=== PATIENT | male | born 1995 | race Caucasian/White ===

== ENCOUNTER 2016-02-16 12:47 | Emergency (ER) | payer OTHER ==
--- NOTE | 2016-02-16 13:53 | EDDOCDS ---
Nurse's Notes [facility] Name: Vidal Tellez Age: 20 yrs Sex: Male : 1995 Arrival Date: 02/16/2016 Time: 12:47 Bed TR8 Private MD: Other - Complete Info On Cds Diagnosis: Acute upper respiratory infection, unspecified;Other acute nonsuppurative otitis media Presentation: 02/15 13:03 Presenting complaint: Patient states: that he parents told him that he had the flu and ms18 had to be seen today. Pt reports NVD, body aches since Tuesday morning. Adult Sepsis Screening: The patient does not have new or worsening altered mentation. Patient's respiratory rate is less than 22. Systolic blood pressure is greater than 100. Patient has a qSOFA score of 0- Negative Sepsis Screen. Suicide/Homicide risk assessment- the patient denies having any suicidal and/or homicidal ideations and does not present with any other emotional, behavioral or mental health complaints. Status: The patient is an active duty application services manager. Transition of care: patient was not received from another setting of care. 13:03 Method Of Arrival: Walkin/Carried/Asstd ms18 13:03 Acuity: RON Level 3 ms18 Triage Assessment: 13:05 General: Appears in no apparent distress, comfortable, Behavior is appropriate for age, ms18 cooperative. Pain: Location: abdomen Pain currently is 9 out of 10 on a pain scale. Pt Declines HIV testing. Neurological: Level of Consciousness is awake, alert, obeys commands, Oriented to person, place, time. Respiratory: Airway is patent Respiratory effort is even, unlabored. GI: Abdomen is distended, Reports diarrhea, nausea, vomiting. Derm: Skin is pink, warm & dry. Historical: - Allergies: no known allergies; - Home Meds: 1. none - PMHx: none; - PSHx: Appendectomy; - Social history: Smoking status: Patient states was never smoker of tobacco. No barriers to communication noted, The patient speaks fluent Romanian. - Family history: Not pertinent. - : The pt / caregiver states he / she is not on anticoagulants. Home medication list is obtained from the patient. - Exposure Risk Screening:: None identified. Screenin:51 Screening information is obtained from the patient. Fall risk: No risks identified. ms18 Assistance ADL's: requires no assistance with activities of daily living. Abuse/DV Screen: The patient / caregiver reports he/she is: not in a situation that causes fear, pain or injury. Nutritional screening: No deficits noted. Advance Directives: There is no living will. home support is adequate. Assessment: 13:51 General: Appears in no apparent distress, comfortable, well nourished, well groomed, ms18 Behavior is appropriate for age, cooperative. Pain: Location: abdomen Pain currently is 9 out of 10 on a pain scale. Neurological: No deficits noted. Respiratory: No deficits noted. Derm: Skin is pink, warm & dry. Vital Signs: 12:49 BP 143 / 78; Pulse 101; Resp 18 S; Temp 97.7(O); Pulse Ox 98% on R/A; Weight 88.45 kg gr2 (M); Height 6 ft. 1 in. (185.42 cm) (R); Pain 4/10; 13:49 BP 136 / 81; Pulse 95; Resp 18; Temp 98(TE); Pulse Ox 98% ; Pain 9/10; ms18 12:49 Body Mass Index 25.73 (88.45 kg, 185.42 cm) gr2 Vitals: 12:49 Log In Time: February 16, 2016 at 12:49. gr2 ED Course: 12:48 Patient visited by Susan De La O. gr2 12:48 Patient moved to Waiting gr2 12:49 Other - Complete Info On Cds is Private Physician. gr2 12:51 Patient visited by Susan De La O. gr2 12:51 Patient moved to Pre RCE gr2 13:05 Triage Initiated ms18 13:29 Patient moved to Triage 2 ms18 13:34 [facility] dk1 13:34 Katarina Green MD is Attending Physician. dk1 13:37 Patient visited by Brandon Turner PA-C. dk1 13:37 [place] Payment Agreement was scanned into [employer] and attached to record. jp5 13:45 Roland Noland [facility] is Referral Physician. dk1 13:49 Patient visited by Rosalva Gonzalez RN. ms18 13:51 Patient visited by Rosalva Gonzalez RN. ms18 13:51 Patient moved to TR8 dem1 13:51 The patient / caregiver is instructed regarding the plan of care and ED course. Patient ms18 has correct armband on for positive identification. Property sent home with patient. :Personal belongings accompany Pt. 13:51 No IV's were initiated during this patient's visit. No procedures done that require ms18 assistance. Order Results: There are currently no results for this order. Outcome: 13:45 Discharge ordered by Provider. dk1 13:51 Discharge Assessment: Patient awake, alert and oriented x 3. No cognitive and/or ms18 functional deficits noted. Patient verbalized understanding of disposition instructions. patient administered narcotics - no. The following High Risk Discharge criteria are identified: None. Discharged to home ambulatory. Condition: good Condition: stable Condition: improved. Discharge instructions given to patient, Instructed on discharge instructions, follow up and referral plans. medication usage, Demonstrated understanding of instructions, medications, Pt was receptive of discharge instructions/ teaching. Prescriptions given X 2. No special radiology studies were completed. 13:53 Patient left the ED. ms18 Signatures: Brandon Turner PA-C PA-C dk1 Laila Solis1 Susan De La O gr2 Rosalva Gonzalez,RN RN ms18 Bev Barron jp5 Corrections: (The following items were deleted from the chart) 13:07 13:03 Acuity: RON Level 4 ms18 ms18 SUGEY
--- NOTE | 2016-02-16 13:53 | EDDOCDS ---
Physician Documentation [facility] Name: Vidal Tellez Age: 20 yrs Sex: Male : 1995 Arrival Date: 02/16/2016 Time: 12:47 Bed TR8 Private MD: Other - Complete Info On Cds Disposition: 02/16/16 13:45 Discharged to Home/Self Care. Impression: Acute upper respiratory infection, unspecified, Other acute nonsuppurative otitis media. - Condition is Stable. - Discharge Instructions: Otitis Media, Adult, Upper Respiratory Infection, Adult. - Prescriptions for Amoxicillin 500 mg Oral Capsule - take 1 capsule by ORAL route every 8 hours for 10 days; 30 tablet. ZOFRAN ODT 4 mg - dissolve 1 tablet by ORAL route 4 times per day As needed do not chew, do not swallow whole; 10 tablet. - Medication Reconciliation, Local Pharmacy Hours form. - Follow up: Roland Noland [facility]; When: 2 - 3 days; Reason: Continuance of care. Follow up: Emergency Department; When: As needed. - Problem is new. - Symptoms are unchanged. Historical: - Allergies: no known allergies; - Home Meds: 1. none - PMHx: none; - PSHx: Appendectomy; - Social history: Smoking status: Patient states was never smoker of tobacco. No barriers to communication noted, The patient speaks fluent [place]. - Family history: Not pertinent. - : The pt / caregiver states he / she is not on anticoagulants. Home medication list is obtained from the patient. - Exposure Risk Screening:: None identified. Vital Signs: 02/15 12:49 BP 143 / 78; Pulse 101; Resp 18 S; Temp 97.7(O); Pulse Ox 98% on R/A; Weight 88.45 kg / gr2 195 lbs (M); Height 6 ft. 1 in. (185.42 cm) (R); Pain 4/10; 13:49 BP 136 / 81; Pulse 95; Resp 18; Temp 98(TE); Pulse Ox 98% ; Pain 9/10; ms18 12:49 Body Mass Index 25.73 (88.45 kg, 185.42 cm) gr2 MDM: 13:37 [facility] Payment Agreement was scanned into [employer] and attached to record. 5 13:37 Financial registration complete. jp5 Signatures: Brandon Turner PA-C PA-C dk1 Rosalva Gonzalez,RN RN ms18 Bev Barron jp5 The chart was reviewed and I authenticate all verbal orders and agree with the evaluation and treatment provided.Attachments: 13:37 [facility] Payment Agreement jp5 MTDD
--- NOTE | 2016-02-18 14:53 | EDDOCDS ---
Nurse's Notes [facility] Name: Vidal Tellez Age: 20 yrs Sex: Male : 1995 Arrival Date: 02/16/2016 Time: 12:47 Bed TR8 Private MD: Other - Complete Info On Cds Diagnosis: Acute upper respiratory infection, unspecified;Other acute nonsuppurative otitis media Presentation: 02/15 13:03 Presenting complaint: Patient states: that he parents told him that he had the flu and ms18 had to be seen today. Pt reports NVD, body aches since Tuesday morning. Adult Sepsis Screening: The patient does not have new or worsening altered mentation. Patient's respiratory rate is less than 22. Systolic blood pressure is greater than 100. Patient has a qSOFA score of 0- Negative Sepsis Screen. Suicide/Homicide risk assessment- the patient denies having any suicidal and/or homicidal ideations and does not present with any other emotional, behavioral or mental health complaints. Status: The patient is an active duty commercial hvac service technician. Transition of care: patient was not received from another setting of care. 13:03 Method Of Arrival: Walkin/Carried/Asstd ms18 13:03 Acuity: RON Level 3 ms18 Triage Assessment: 13:05 General: Appears in no apparent distress, comfortable, Behavior is appropriate for age, ms18 cooperative. Pain: Location: abdomen Pain currently is 9 out of 10 on a pain scale. Pt Declines HIV testing. Neurological: Level of Consciousness is awake, alert, obeys commands, Oriented to person, place, time. Respiratory: Airway is patent Respiratory effort is even, unlabored. GI: Abdomen is distended, Reports diarrhea, nausea, vomiting. Derm: Skin is pink, warm & dry. Historical: - Allergies: no known allergies; - Home Meds: 1. none - PMHx: none; - PSHx: Appendectomy; - Social history: Smoking status: Patient states was never smoker of tobacco. No barriers to communication noted, The patient speaks fluent Mohawk. - Family history: Not pertinent. - : The pt / caregiver states he / she is not on anticoagulants. Home medication list is obtained from the patient. - Exposure Risk Screening:: None identified. Screenin:51 Screening information is obtained from the patient. Fall risk: No risks identified. ms18 Assistance ADL's: requires no assistance with activities of daily living. Abuse/DV Screen: The patient / caregiver reports he/she is: not in a situation that causes fear, pain or injury. Nutritional screening: No deficits noted. Advance Directives: There is no living will. home support is adequate. Assessment: 13:51 General: Appears in no apparent distress, comfortable, well nourished, well groomed, ms18 Behavior is appropriate for age, cooperative. Pain: Location: abdomen Pain currently is 9 out of 10 on a pain scale. Neurological: No deficits noted. Respiratory: No deficits noted. Derm: Skin is pink, warm & dry. Vital Signs: 12:49 BP 143 / 78; Pulse 101; Resp 18 S; Temp 97.7(O); Pulse Ox 98% on R/A; Weight 88.45 kg gr2 (M); Height 6 ft. 1 in. (185.42 cm) (R); Pain 4/10; 13:49 BP 136 / 81; Pulse 95; Resp 18; Temp 98(TE); Pulse Ox 98% ; Pain 9/10; ms18 12:49 Body Mass Index 25.73 (88.45 kg, 185.42 cm) gr2 Vitals: 12:49 Log In Time: February 16, 2016 at 12:49. gr2 ED Course: 12:48 Patient visited by Susan De La O. gr2 12:48 Patient moved to Waiting gr2 12:49 Other - Complete Info On Cds is Private Physician. gr2 12:51 Patient visited by Susan De La O. gr2 12:51 Patient moved to Pre RCE gr2 13:05 Triage Initiated ms18 13:29 Patient moved to Triage 2 ms18 13:34 [facility] dk1 13:34 Katarina Green MD is Attending Physician. dk1 13:37 Patient visited by Brandon Turner PA-C. dk1 13:37 [place] Payment Agreement was scanned into [employer] and attached to record. jp5 13:45 Roland Noland [facility] is Referral Physician. dk1 13:49 Patient visited by Rosalva Gonzalez RN. ms18 13:51 Patient visited by Rosalva Gonzalez RN. ms18 13:51 Patient moved to TR8 dem1 13:51 The patient / caregiver is instructed regarding the plan of care and ED course. Patient ms18 has correct armband on for positive identification. Property sent home with patient. :Personal belongings accompany Pt. 13:51 No IV's were initiated during this patient's visit. No procedures done that require ms18 assistance. 14:26 T-Sheet-- Draft Copy was scanned into [employer] and attached to record. gb Order Results: There are currently no results for this order. Outcome: 13:45 Discharge ordered by Provider. dk1 13:51 Discharge Assessment: Patient awake, alert and oriented x 3. No cognitive and/or ms18 functional deficits noted. Patient verbalized understanding of disposition instructions. patient administered narcotics - no. The following High Risk Discharge criteria are identified: None. Discharged to home ambulatory. Condition: good Condition: stable Condition: improved. Discharge instructions given to patient, Instructed on discharge instructions, follow up and referral plans. medication usage, Demonstrated understanding of instructions, medications, Pt was receptive of discharge instructions/ teaching. Prescriptions given X 2. No special radiology studies were completed. 13:53 Patient left the ED. ms18 Signatures: Staci Mckeon, Reg Reg gb Brandon Turner, PA-Shirin PA-C dk1 Laila Solis1 Susan De La O gr2 Rosalva Gonzalez,RN RN ms18 Bev Barron jp5 Corrections: (The following items were deleted from the chart) 13:07 13:03 Acuity: RON Level 4 ms18 ms18 Chart Complete MTDD
--- NOTE | 2016-02-18 14:53 | EDDOCDS ---
Physician Documentation [facility] Name: Vidal Tellez Age: 20 yrs Sex: Male : 1995 Arrival Date: 02/16/2016 Time: 12:47 Bed TR8 Private MD: Other - Complete Info On Cds Disposition: 02/16/16 13:45 Discharged to Home/Self Care. Impression: Acute upper respiratory infection, unspecified, Other acute nonsuppurative otitis media. - Condition is Stable. - Discharge Instructions: Otitis Media, Adult, Upper Respiratory Infection, Adult. - Prescriptions for Amoxicillin 500 mg Oral Capsule - take 1 capsule by ORAL route every 8 hours for 10 days; 30 tablet. ZOFRAN ODT 4 mg - dissolve 1 tablet by ORAL route 4 times per day As needed do not chew, do not swallow whole; 10 tablet. - Medication Reconciliation, Local Pharmacy Hours form. - Follow up: Roland Noland [facility]; When: 2 - 3 days; Reason: Continuance of care. Follow up: Emergency Department; When: As needed. - Problem is new. - Symptoms are unchanged. Historical: - Allergies: no known allergies; - Home Meds: 1. none - PMHx: none; - PSHx: Appendectomy; - Social history: Smoking status: Patient states was never smoker of tobacco. No barriers to communication noted, The patient speaks fluent Tajik. - Family history: Not pertinent. - : The pt / caregiver states he / she is not on anticoagulants. Home medication list is obtained from the patient. - Exposure Risk Screening:: None identified. Vital Signs: 02/15 12:49 BP 143 / 78; Pulse 101; Resp 18 S; Temp 97.7(O); Pulse Ox 98% on R/A; Weight 88.45 kg / gr2 195 lbs (M); Height 6 ft. 1 in. (185.42 cm) (R); Pain 4/10; 13:49 BP 136 / 81; Pulse 95; Resp 18; Temp 98(TE); Pulse Ox 98% ; Pain 9/10; ms18 12:49 Body Mass Index 25.73 (88.45 kg, 185.42 cm) gr2 MDM: 13:37 [facility] Payment Agreement was scanned into [employer] and attached to record. jp5 13:37 Financial registration complete. jp5 14:26 T-Sheet-- Draft Copy was scanned into [employer] and attached to record. gb Signatures: Staci Mckeon, Reg Reg gb Brandon Turner, JIMYC PAHarika patten1 Rosalva Gonzalez,RN RN ms18 Anderson Bev jp5 The chart was reviewed and I authenticate all verbal orders and agree with the evaluation and treatment provided.Attachments: 13:37 [facility] Payment Agreement jp5 14:26 T-Sheet-- Draft Copy gb Chart Complete MTDD
--- NOTE | 2016-02-18 14:53 | EDDOCDS ---
Physician Documentation [facility] Name: Vidal Tellez Age: 20 yrs Sex: Male : 1995 Arrival Date: 02/16/2016 Time: 12:47 Bed TR8 Private MD: Other - Complete Info On Cds Disposition: 02/16/16 13:45 Discharged to Home/Self Care. Impression: Acute upper respiratory infection, unspecified, Other acute nonsuppurative otitis media. - Condition is Stable. - Discharge Instructions: Otitis Media, Adult, Upper Respiratory Infection, Adult. - Prescriptions for Amoxicillin 500 mg Oral Capsule - take 1 capsule by ORAL route every 8 hours for 10 days; 30 tablet. ZOFRAN ODT 4 mg - dissolve 1 tablet by ORAL route 4 times per day As needed do not chew, do not swallow whole; 10 tablet. - Medication Reconciliation, Local Pharmacy Hours form. - Follow up: Roland Noland [facility]; When: 2 - 3 days; Reason: Continuance of care. Follow up: Emergency Department; When: As needed. - Problem is new. - Symptoms are unchanged. Historical: - Allergies: no known allergies; - Home Meds: 1. none - PMHx: none; - PSHx: Appendectomy; - Social history: Smoking status: Patient states was never smoker of tobacco. No barriers to communication noted, The patient speaks fluent Icelandic. - Family history: Not pertinent. - : The pt / caregiver states he / she is not on anticoagulants. Home medication list is obtained from the patient. - Exposure Risk Screening:: None identified. Vital Signs: 02/15 12:49 BP 143 / 78; Pulse 101; Resp 18 S; Temp 97.7(O); Pulse Ox 98% on R/A; Weight 88.45 kg / gr2 195 lbs (M); Height 6 ft. 1 in. (185.42 cm) (R); Pain 4/10; 13:49 BP 136 / 81; Pulse 95; Resp 18; Temp 98(TE); Pulse Ox 98% ; Pain 9/10; ms18 12:49 Body Mass Index 25.73 (88.45 kg, 185.42 cm) gr2 MDM: 13:37 [facility] [place] Payment Agreement was scanned into [employer] and attached to record. jp5 13:37 Financial registration complete. jp5 14:26 T-Sheet-- Draft Copy was scanned into [employer] and attached to record. gb Signatures: Staci Mckeon, Reg Reg gb Brandon Turner, JIMYC PAHarika patten1 Rosalva Gonzalez,RN RN ms18 Anderson Bev jp5 The chart was reviewed and I authenticate all verbal orders and agree with the evaluation and treatment provided.Attachments: 13:37 [facility] Payment Agreement jp5 14:26 T-Sheet-- Draft Copy gb Chart Complete MTDD
== END 2016-02-16 13:53 | disposition home or self-care (01) ==
LOC: M ED 12:47
DX: J06.9 Acute upper respiratory infection, unspecified (principal); H66.90 Otitis media, unspecified, unspecified ear; Z90.89 Acquired absence of other organs

== ENCOUNTER 2016-06-09 17:00 | Emergency (ER) | payer OTHER ==
[~2016-06-09] VITALS: Ht 185.4 cm; Wt 93.0 kg
[2016-06-09] MEDS ORDERED: LIDOCAINE 2% MDV 20 ML VIAL SC ONE (18:15)
[2016-06-09] MEDS ORDERED: PERCOCET 5MG/325MG TAB PO ONE (18:15)
--- NOTE | 2016-06-09 19:32 | REP ---
Right fingers, four views : There is no fracture or dislocation. Mineralization and joint spaces are normal. There are no calcifications or foreign bodies. Impression: Negative right fingers . Signed by Peter Morgan MD 06/09/2016 07:24 P
[2016-06-09] MEDS ORDERED: KEFL500C7 PO (19:37)
[2016-06-09] MEDS ORDERED: IBUP600T26 PO (19:37)
[2016-06-09] MEDS ORDERED: CEPHALEXIN 500 MG CAP PO ONE (19:45)
[2016-06-09 19:46] VITALS: BP 140/76
[2016-06-09] MEDS ORDERED: OXYCODONE/APAP 5MG/325MG(BULK FOR ED) 1 TABLET PO ONE (20:00)
[2016-06-09] MEDS ORDERED: metroNIDAZOLE (FLAGYL) 500 MG TAB PO ONE (20:00)
[2016-06-09] MEDS ORDERED: CIPROFLOXACIN 500 MG TAB PO ONE (20:00)
== END 2016-06-09 20:10 | disposition home or self-care (01) ==
LOC: M ED 18:10
DX: S60.031A Contusion of right middle finger without damage to nail, initial encounter (principal); S61.218A Laceration without foreign body of other finger without damage to nail, initial encounter; W26.8XXA Contact with other sharp object(s), not elsewhere classified, initial encounter; Y92.59 Other trade areas as the place of occurrence of the external cause; Y93.89 Activity, other specified; Y99.0 Civilian activity done for income or pay; F17.210 Nicotine dependence, cigarettes, uncomplicated

== ENCOUNTER 2016-11-18 09:05 | Emergency (ER) | payer OTHER ==
[~2016-11-18 09:05] MED LIST: IBUP-1022 PO; KEFL500C17 PO
--- NOTE | 2016-11-18 10:09 | REP ---
CT Head without contrast HISTORY: Trauma COMPARISON: None There is no intraparenchymal hemorrhage, acute infarct, mass or midline shift. The ventricular system is normal in appearance. There is no extra cerebral collection. There is no fracture. The visualized sinuses are clear. IMPRESSION: There is no intracranial lesion. Signed by Liam Barraza MD 11/18/2016 10:00 A
[2016-11-18 10:21] VITALS: BP 148/72
== END 2016-11-18 10:26 | disposition home or self-care (01) ==
LOC: M ED 09:05
DX: S06.0X0A Concussion without loss of consciousness, initial encounter (principal); W19.XXXA Unspecified fall, initial encounter; Y92.59 Other trade areas as the place of occurrence of the external cause; Y93.89 Activity, other specified; Y99.8 Other external cause status; Z79.2 Long term (current) use of antibiotics